=== PATIENT | male | born 1940 | race Two or more races ===

== ENCOUNTER 2019-07-02 13:22 | Inpatient (IN) | payer OTHER ==
[~2019-07-02] VITALS: Ht 170.2 cm; Wt 99.8 kg
--- NOTE | 2019-07-02 13:35 | NUR ---
SE RECIBE PTE. MASCULINO EN SILLA DE KENDRICK ACOMPANADO DE FAMILIAR PTE. REFIERE DOLOR ABDOMINAL DESDE HACE DOS REN SE PASA A AREA DE OBSERVACION PTE. FUE EVALUADO EN CDT DE VIEQUEZ Y LE REFIRIERON A MARIA LUZ FALGUNI DE EMERGENCIA.
[2019-07-02] MEDS ORDERED: KETO10TA2 (14:07)
[2019-07-02] MEDS ORDERED: NORFLEX100MG (14:07)
[2019-07-02] MEDS ORDERED: HUMULIN 70100 UNIT/2 (14:07)
[2019-07-02] MEDS ORDERED: ACETAMINOPHEN (14:08)
--- NOTE | 2019-07-02 14:49 | NUR ---
SE ORIENTA AL PACIENTE SOBRE CANALIZACION, MUESTRAS DE JOHN, CT Y CONTRASTE. PACIENTE REFIERE ENTENDER. SE PROCEEDE A CANALIZAR AL PACIENTE Y COLECTAR MUESTRAS UTILIZANDO MEDIDAS ASEPTICAS. MUESTRAS SON ENVIADAS AL LABORATORIO. AREA DE VENOPUNCION ROSELYN DE EDEMA Y ERITEMA. SE LE ALEXANDRU URINAL PARA COLECTAR MUESTRAS DE ORINA. SE LE ENTREGA ENVASE DE ORINA Y SE ORIENTA AL MISMO. PACIENTE REFIERE ENTENDER. SE ORIENTA SOBRE CONTRASTE. PACIENTE REFIERE ENTENDER. PACIENTE EN ESPERA DE CT ABDOMINAL PELVICO. SE LE NOTIFICA A MISS. JOHN SOBRE EL CT. LA MISMA ESTA NOTIFICADA.
--- NOTE | 2019-07-02 15:32 | NUR ---
SE RECIBE PACIENTE ALERTA Y ORIENTADO EN MICHEL EN COMPANIA DE FAMILIAR. PACIENTE CON VENOPUNCION PATENTE ROSELYN DE EDEMA Y ERRITEMA EN BRAZO RANI CON .9 NSS BAJANDO A 150 ML/HR. PACIENTE TOMANDO CONTRASTE PARA CT ABDOMINO PELVICO. PACIENTE CON ORINA PENDIENTE. SE YECENIA A PACIENTE EN CAMA BAJO OBSERVACION POR CAMBIOS EN DURON CONDICION.
--- NOTE | 2019-07-02 15:48 | NUR ---
PTE CON BP 70/50 MANUAL,SE NOTIFICA DR DHILLON Y SE LE ADMINISTRAN FLUIDOS DE MANTENIMIENTO A 200 ML/HR POR 300 ML.
--- NOTE | 2019-07-02 23:07 | NUR ---
PACIENTE ALERTA Y ORIENTADO X3. EN MICHEL CON BARANDAS ELEVADAS Y FAMILIAR PRESENTE. IV FLUID PATENTE Y ROSELYN DE EDEMA Y ERITEMA. PACIENTE REFIRIO EN LA JAQUELIN DE ENTREGA QUE TENIA DOLOR ABDOMINAL Y SE NOTIFICO A DR. EDMOND. SE MANTIENE BAJO OBSERVACION POR CAMBIOS SIGNIFICATIVOS. PENDIENTE VISITA DE DR. GODFREY.
--- NOTE | 2019-07-03 06:59 | NUR ---
PACIENTE ALERTA Y ORENTADO X3. SE ORIENTA SOBRE TX A RECIBIR Y REFIERE ENTENDER. SE ADMINISTRA MEDICAMENTO ASAD ORDEN MEDICA. SE MANTIENE BAJO OBSERVACION POR CAMBIOS SIGNIFICATIVOS.
--- NOTE | 2019-07-03 10:36 | NUR ---
MISS. LEONORA Rodriguez RN, ORIENTA AL PACIENTE SOBRE MEDICAMENTO CIPRO 400MG/200ML D5W PIGGY. PACIENTE REFIERE ENTENDER. MISS. LEONORA Rodriguez RN, PROCEEDE A BRINDAR EL MEDICAMENTO Y OBSERVA AL PACIENTE POR CAMBIOS EN CONDICION DE JENN.
--- NOTE | 2019-07-03 10:43 | NUR ---
SE PAMELLA MUESTRAS DE JOHN CON MEDIDAS ASEPTICAS Y PT Y KELVIN SON ORIENTADOS.
[2019-07-04] MEDS ORDERED: TYLENOL325 M1 (14:03)
== END 2019-07-28 20:59 | disposition expired | DRG 435 ==
LOC: ER 13:22 → SEC-K 07-03 11:54 → MEDJ 07-03 11:54 → SURH 07-13 11:44
PROVIDERS: ADMIT Internal Medicine
PROC: BW21YZZ Computerized Tomography (CT Scan) of Abdomen and Pelvis using Other Contrast (ICD-10-PCS; 2019-07-03)
PROC: 02HV33Z Insertion of Infusion Device into Superior Vena Cava, Percutaneous Approach (ICD-10-PCS; 2019-07-06)
PROC: 3E0436Z Introduction of Nutritional Substance into Central Vein, Percutaneous Approach (ICD-10-PCS; 2019-07-06)
PROC: BW21Y0Z Computerized Tomography (CT Scan) of Abdomen and Pelvis using Other Contrast, Unenhanced and Enhanced (ICD-10-PCS; 2019-07-10)
PROC: 30243N1 Transfusion of Nonautologous Red Blood Cells into Central Vein, Percutaneous Approach (ICD-10-PCS; 2019-07-10)
PROC: 0W9F30Z Drainage of Abdominal Wall with Drainage Device, Percutaneous Approach (ICD-10-PCS; principal; 2019-07-12)
PROC: 3E0F7GC Introduction of Other Therapeutic Substance into Respiratory Tract, Via Natural or Artificial Opening (ICD-10-PCS; 2019-07-23)
PROC: 4A033R1 Measurement of Arterial Saturation, Peripheral, Percutaneous Approach (ICD-10-PCS; 2019-07-25)
DX: C78.7 Secondary malignant neoplasm of liver and intrahepatic bile duct (principal); A41.9 Sepsis, unspecified organism; K65.1 Peritoneal abscess; J18.1 Lobar pneumonia, unspecified organism; K92.1 Melena; E87.1 Hypo-osmolality and hyponatremia; B37.41 Candidal cystitis and urethritis; N17.8 Other acute kidney failure; K56.690 Other partial intestinal obstruction; J90 Pleural effusion, not elsewhere classified; G72.81 Critical illness myopathy; J98.11 Atelectasis; R60.1 Generalized edema; C80.1 Malignant (primary) neoplasm, unspecified; D63.0 Anemia in neoplastic disease; D50.8 Other iron deficiency anemias; K57.30 Diverticulosis of large intestine without perforation or abscess without bleeding; E11.65 Type 2 diabetes mellitus with hyperglycemia; E86.0 Dehydration; E87.8 Other disorders of electrolyte and fluid balance, not elsewhere classified; E66.09 Other obesity due to excess calories; Z79.4 Long term (current) use of insulin; Z66 Do not resuscitate